=== PATIENT | female | born 1960 | race Native Hawaiian/Other Pacific Islander ===

== ENCOUNTER 2018-08-15 17:09 | Outpatient (CLI) | payer OTHER ==
[2018-08-15 17:34] LABS: PLATELET COUNT 215 K/uL (152-353)
[2018-08-15 17:46] LABS: POTASSIUM 4.3 mmol/L (3.6-5.2)
== END 2018-08-15 21:43 | disposition home or self-care (01) ==
LOC: LABW 17:09
DX: L40.8 Other psoriasis (principal); M06.4 Inflammatory polyarthropathy; M79.7 Fibromyalgia; Z79.899 Other long term (current) drug therapy; Z87.891 Personal history of nicotine dependence
CPT/HCPCS: 80053; 85027; 85651; 86140; 86480; 86705; 86706; 86709; 87340; 87522; 87535; G0432

== ENCOUNTER 2021-08-23 13:31 | Outpatient (CLI) | payer OTHER | END 2021-08-23 19:03 | disposition home or self-care (01) | LOC: RAD 13:31 | PROVIDERS: ATTEND Nurse Practitioner Family | DX: L40.8 Other psoriasis (principal); M54.2 Cervicalgia; M85.89 Other specified disorders of bone density and structure, multiple sites; Z79.899 Other long term (current) drug therapy; Z87.891 Personal history of nicotine dependence; Z09 Encounter for follow-up examination after completed treatment for conditions other than malignant neoplasm ==

== ENCOUNTER 2022-10-04 13:52 | Outpatient (CLI) | payer OTHER | END 2022-10-04 19:58 | disposition home or self-care (01) | LOC: RAD 13:52 | PROVIDERS: ATTEND Nurse Practitioner Family | DX: E55.9 Vitamin D deficiency, unspecified (principal); L40.8 Other psoriasis; M17.0 Bilateral primary osteoarthritis of knee; Z79.69 Long term (current) use of other immunomodulators and immunosuppressants; Z79.899 Other long term (current) drug therapy ==